=== PATIENT | male | born 1960 | race Caucasian/White ===

== ENCOUNTER 2020-02-25 10:55 | Outpatient (CLI) | payer BC, OTHER ==
--- NOTE | 2020-02-25 14:07 | RAD ---
KUB: INDICATION: History of iron deficiency anemia. COMPARISON: None. FINDINGS: The bowel gas pattern is unobstructed. No suspicious calcification is evident. There are numerous p hleboliths within the lower pelvis. No acute osseous abnormality is noted. IMPRESSION: No acute abnormality. POS: BH
== END 2020-02-25 10:56 | disposition home or self-care (01) ==
LOC: SCSRAD 10:55
PROVIDERS: ATTEND Internal Medicine Gastroenterology
DX: D50.9 Iron deficiency anemia, unspecified (principal)
CPT/HCPCS: 74018

== ENCOUNTER 2023-11-10 10:41 | Outpatient (CLI) | payer BC | END 2023-11-10 10:42 | disposition home or self-care (01) | LOC: BICMRI 10:41 | PROVIDERS: ATTEND Family Medicine | DX: M25.562 Pain in left knee (principal); S82.832A Other fracture of upper and lower end of left fibula, initial encounter for closed fracture ==

== ENCOUNTER 2025-05-28 12:57 | Outpatient (CLI) | payer BC | END 2025-05-28 12:58 | disposition home or self-care (01) | LOC: SCSMRI 12:57 | PROVIDERS: ATTEND Family Medicine | DX: R51.9 Headache, unspecified (principal) | CPT/HCPCS: 70551 ==